=== PATIENT | male | born 1955 | race Caucasian/White ===

== ENCOUNTER 2019-04-28 06:59 | Day surgery (SDC) | payer BC ==
[~2019-04-28] VITALS: Ht 177.8 cm; Wt 117.5 kg
--- NOTE | ~2019-04-28 | OP ---
PATIENT NAME: MICKEY BERMUDEZ MEDICAL RECORD: [id number] :55 LOCATION:D[facility] ADMISSION DATE: SURGEON: JOSE RAMON HUGHES MD DATE OF OPERATION: 04/28/2019 PREOPERATIVE DIAGNOSIS: Condyloma acuminata of the anus. POSTOPERATIVE DIAGNOSIS: Condyloma acuminata of the anus. PROCEDURES: 1. Transanal excision of anal mass (condyloma acuminata). 2. Anal brushings for cytology. 3. Argon plasma coagulation and ablation of other small condyloma of the anus. SURGEON: Jose Ramon Hughes MD HELPDESK TECHNICIAN: None. BLOOD LOSS: 25 cc. ANESTHESIA: General. COMPLICATIONS: None. The risks, possible complications and alternatives to the procedure were explained to the patient. He elects to proceed. The discussion specifically included, but was not limited to, bleeding requiring emergency reoperation, infection, possible need for an additional procedure or procedures. OPERATIVE COURSE: The patient was conveyed the operating room electively on 04/28/2019. General anesthesia was induced by the anesthesia staff. The anus and perianal areas were sterilely prepped and draped. Anal brushings were performed vigorously with a large brush. This was sent to the pathologist for cytologic examination. U-shaped lubricated anal retractors were placed within the anus. A small anal fissure was noted at 6 o'clock. The condyloma was identified on an internal hemorrhoid. Utilizing ENT biopsy forceps, I removed the condyloma in its entirety. It was on an internal hemorrhoid, which bled. During manipulation of the retractors, a second hemorrhoid bled as well. The bleeding was controlled with suture ligature of 3-0 Vicryls at both sites. Additional tissue that was worrisome for condylomatous tissue was ablated with the argon plasma sandwich and drink cart operator utilizing the forced mode in the rectal setting. Gelfoam was applied within the anus and lower rectum. A combination of Marcaine and a steroid preparation were used to infiltrate the perianal tissues. Americaine was applied to the external hemorrhoids. The patient was then extubated and conveyed to post-anesthesia care unit where he was in stable condition. He will be dismissed home on [place] as well as Colace. I will see him in the office in 2-3 weeks. Depending on the pathology, that will determine his surveillance regimen. TRANSINT:[id number] Voice Confirmation ID: [id number] DOCUMENT ID: [id number] OPERATIVE REPORT [id number] MICKEY BERMUDEZ ROBERT MD CC: [id number] DICTATION DATE: 04/28/19 1230 REGISTERED SALES ASSISTANT: 04/28/[address] [facility] [address] [id number]
[~2019-04-28 06:59] MED LIST: METOPROLOL TART50 MG PO; PRAVACHOL40 MG PO
[2019-04-28 07:32] LABS: HEMATOCRIT 45.4 % (42.0-54.0); HEMOGLOBIN 15.1 g/dL (13.5-17.5); MCH 28.5 pg (26.0-34.0); MCHC 33.3 g/dL (31.0-37.0); MCV 85.7 fL (80.0-100.0); MEAN PLATELET VOLUME 11.8 fL (7.4-10.4); RBC 5.3 10x6/uL (4.20-6.10); WBC 5.6 10x3/uL (4.8-10.8)
[2019-04-28 08:01] VITALS: BP 110/61; Ht 177.8 cm; Wt 117.5 kg
[2019-04-28] MEDS ORDERED: BAYER CHEWABLE81 MG PO (08:15)
--- NOTE | 2019-04-28 13:45 | NUR ---
6085-CALLED [facility] ON [address] AND CALLED IN VALIUM AND COLACE PER ORDERS. SPOKE WITH BRENNA
== END 2019-04-28 13:40 | disposition home or self-care (01) ==
LOC: D.OPS 06:59 → D.PAN 08:00 → D.OPS 09:00 → D.PAN 09:30 → D.OPS 09:30
PROVIDERS: Anesthesiology; ATTEND Surgery
DX: A63.0 Anogenital (venereal) warts (principal); J45.909 Unspecified asthma, uncomplicated

== ENCOUNTER 2020-08-13 08:41 | Day surgery (SDC) | payer MEDICARE, BC ==
[~2020-08-13] VITALS: Ht 177.8 cm; Wt 95.0 kg
[~2020-08-13 08:41] MED LIST changes: +BAYER CHEWABLE81 MG PO
[2020-08-13 09:10] LABS: BASOPHILS 0.4 % (0-2); HEMATOCRIT 45.1 % (42.0-54.0); HEMOGLOBIN 15.4 g/dL (13.5-17.5); IMMATURE GRANULOCYTES 0.1 % (0-5); LYMPHOCYTE ABS# 1.67 10x3/uL (1.32-3.57); LYMPHOCYTES 24.4 % (15-50); MCH 28.4 pg (26.0-34.0); MCHC 34.1 g/dL (31.0-37.0); MCV 83.2 fL (80.0-100.0); MEAN PLATELET VOLUME 12.7 fL (7.4-10.4); MONOCYTES 7.7 % (2-11); NEUTROPHIL ABS# 4.53 10x3/uL (1.78-5.38); NEUTROPHILS 66.4 % (40-80); PLATELET COUNT 85 10x3/uL (130-400); RBC 5.42 10x6/uL (4.20-6.10); RDW 13.9 % (11.5-14.5); WBC 6.8 10x3/uL (4.8-10.8)
[2020-08-13 09:11] LABS: PLATELET ESTIMATE DECREASED
[2020-08-13 09:20] LABS: CALC OSMOLALITY 279 mosm/kg (275-300); CALCIUM 9.2 mg/dL (8.5-10.1); CARBON DIOXIDE 26.7 mmol/L (21.0-32.0); CHLORIDE - SERUM 104 mmol/L (98-107); GLUCOSE 97 mg/dL (74-106); POTASSIUM - SERUM 4.5 mmol/L (3.5-5.1); SODIUM 140 mmol/L (136-145); UREA NITROGEN 14 mg/dL (7-18); eGFR NON AFRICAN AMERICAN 80 mL/min (90-120)
[2020-08-13 09:41] VITALS: BP 127/63; Ht 177.8 cm; Wt 95.0 kg
--- NOTE | 2020-08-13 13:00 | NUR ---
1245 DRESSED. AWAKE & ALERT. PROVIDED WITH DISCHARGE INFORMATION INCLUDING: MED REC, SHEET LISTING NSAIDS TO HOLD, [facility] POST ENDOSCOPY D/C INSTRUCTIONS, UNABLE TO REACH CLINIC FOR FOLLOW UP APPOINTMENT. PT INFORMED TO CALL FOR FOLLOWUP APPOINTMENT. PT & VOICED UNDERSTANDING. TO PRIVATE CAR PER STAFF. HOME WITH MRS. BERMUDEZ. Sonny VELEZ R.N.
--- NOTE | 2020-08-13 16:58 | HP ---
PATIENT: MICKEY BERMUDEZ MEDICAL RECORD: [id number] ACCOUNT: [id number] [facility] 55 ADMISSION DATE: 08/13/20 PCP: BRANDON ROCHA HISTORY AND PHYSICAL EXAMINATION CHIEF COMPLIANT: History of condyloma acuminata of the anus. HISTORY: During the patient's last anal brushings, which were a year ago, he had squamous epithelium with moderate atypia, dysplasia. He is here today for followup colonoscopy with anal brushings. HOME MEDICATIONS: Reviewed. ALLERGIES: No known drug allergies. SOCIAL HISTORY: Nonsmoker. PAST MEDICAL AND SURGICAL HISTORY: Asthma as a child, hypertension, gastroesophageal reflux, history of AVR. REVIEW OF SYSTEMS: Negative for angina or myocardial infarction. PHYSICAL EXAMINATION: GENERAL: The patient does not appear acutely ill. He does not appear chronically ill. VITAL SIGNS: Reviewed. EARS: External ears appear normal. EYES: Extraocular movements are intact. NECK: Trachea is midline. CHEST: No intercostal retractions. PULMONARY: Nonlabored. No stridor. IMPRESSION: History of condyloma acuminata of the anus. PLAN: Surveillance colonoscopy with anal brushings. TRANSINT:[id number] Voice Confirmation ID: [id number] DOCUMENT ID: [id number] SEMAJ HUGHES MD at 1658 CC: [id number] DICTATION DATE: 08/13/20 1109 OLIVE GRADER: 08/13/20 1135 [facility] 08/13/20 [id number] [place] [address]
--- NOTE | 2020-08-13 16:58 | OP ---
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 PROCEDURES: 1. Total colonoscopy to cecum. 2. Hot biopsy forceps polypectomies x2. 3. Anal brushings for cytology. SURGEON: Jose Ramon Hughes MD BOOK COVERER: None. BLOOD LOSS: Minimal. ANESTHESIA: IV sedation. COMPLICATIONS: None. The risks, benefits and complications and alternatives of the procedure were explained to the patient and he elects to proceed. ENDOSCOPIC COURSE: The patient was conveyed to the endoscopy suite electively on 08/13/2020. IV sedation was induced by the anesthesia staff. The patient was placed in the Gage position. A digital rectal examination was performed. Colonoscope was inserted through the anus. It was easily advanced to the cecum. The prep was adequate. I slowly withdrew the endoscope. A combination of normal imaging and narrow band imaging were utilized. I dragged the folds. The pullback was greater than 18-minute pullback. Two polypoid lesions were noted and these were removed utilizing hot biopsy forceps polypectomy technique. The most suspicious of these was at the anus on an internal hemorrhoid. I then unretroflexed the scope and removed it under direct vision. I then brushed the anus for cytology with an anal brush. The patient was then conveyed back to his room. I will see him in my office in 2 to 3 weeks. Plan for his next flexible proctoscopy with anal brushings in 2 years. TRANSINT:[id number] Voice Confirmation ID: [id number] DOCUMENT ID: [id number] OPERATIVE REPORT [id number] MICKEY BERMUDEZ ROBERT MD at 1658 CC: [id number] DICTATION DATE: 08/13/20 1159 TELECASTING TECHNICIAN: 08/13/20 1531 [facility] 08/13/[address] [place] [address]
== END 2020-08-13 12:45 | disposition home or self-care (01) ==
LOC: D.OPS 08:41
PROVIDERS: ATTEND Surgery
DX: A63.0 Anogenital (venereal) warts (principal); Q89.9 Congenital malformation, unspecified; J45.909 Unspecified asthma, uncomplicated; I10 Essential (primary) hypertension; K21.9 Gastro-esophageal reflux disease without esophagitis; K63.5 Polyp of colon